=== PATIENT | male | born 1970 | race Caucasian/White ===

== ENCOUNTER 2020-10-28 09:11 | Day surgery (SDC) | payer OTHER, SELFPAY ==
[2020-10-28] VITALS (8 sets, daily range): BP systolic 111–131; BP diastolic 67–90; PULSE 58–77; RESP 16–18; TEMP 36.2–36.3; O2SAT 96–118; BMI 28.0
--- NOTE | ~2020-10-28 | FL_ITS ---
EXAMINATION: FLUOROSCOPY-GUIDED LUMBAR PUNCTURE CLINICAL INFORMATION: Pseudotumor cerebri. COMPARISON: None. TECHNIQUE: Following explaining fluoroscopy-guided lumbar puncture procedure, benefits and risks, a written consent was obtained. Patient was placed prone on the fluoroscopy table and low back area was cleaned and draped in usual sterile manner. 1% lidocaine was injected overlying the L4-L5 disc level in the left para midline region. A 22-gauge short spinal needle was inserted intrathecally under fluoroscopy guidance. After removing the site of swelling CSF fluid, patient was quickly placed in left lateral decubitus view and opening CSF pressure was obtained. CSF fluid was then collected and some drained in 4 test tubes. Closing pressure was then obtained. The stylet was reintroduced and needle withdrawn. Complete hemostasis was achieved at the puncture site. Sterile band-aid was applied postprocedure. Patient tolerated the procedure extremely well. FINDINGS: On a single image obtained of the lumbar spine, the L3, L4 and L5 vertebral heights were normal. The disc heights are preserved. No visible fracture or bony abnormality seen. The opening CSF pressure measured 35 cm of water. The closing CSF pressure measured 11 cm of water. Approximately 12 mL of clear CSF fluid was collected in 4 test tubes and sent to lab. FLUOROSCOPY TIME: 0.4 minutes. DOSE AREA PRODUCT: 3.694 uGy-m2 (microgray-meter squared). FL/FL guided lumbar puncture LP IMPRESSION: Successful fluoroscopy-guided lumbar puncture performed. Elevated CSF opening pressure 35 cm of water.
[2020-10-28 10:34] LABS: MANUAL DIFF FLAG NO
[2020-10-28 10:39] LABS: Basophils Absolute Auto 0.1 X10*3/uL (0.0-0.2); Eosinophils Absolute Auto 0.1 X10*3/uL (0.0-0.4); Eosinophils Percent Auto 2.6 % (0-4); Hematocrit 42.1 % (42-52); Hemoglobin 13.8 g/dl (14.0-18.0); Imm Gran Abs Auto 0.01 X10*3/uL (0.00-0.03); Imm Gran Pct Auto 0.2 % (0.0-0.4); Lymphocytes Absolute Auto 1.6 X10*3/uL (1.2-4.9); Lymphocytes Percent Auto 32.4 % (20-40); Mean Corpuscular HGB Conc 32.8 g/dl (31.0-36.0); Mean Corpuscular Hemoglobin 29.6 pg (27.0-33.0); Mean Corpuscular Volume 90.3 fL (80-98); Mean Platelet Volume 7.9 fL (9.4-12.4); Monocytes Absolute Auto 0.6 X10*3/uL (0.1-1.2); Monocytes Percent Auto 11.7 % (2-11); Neutrophils Absolute Auto 2.6 X10*3/uL (2.0-8.3); Neutrophils Percent Auto 52.1 % (45-73); Platelet Count 273 X10*3/uL (160-400); Red Blood Count 4.66 X10*6/uL (4.60-5.80); Red Cell Distribution Width 14.6 % (11.0-16.0); White Blood Count 4.9 X10*3/uL (4.8-10.8)
[2020-10-28 10:54] LABS: Partial Thromboplastin Time 33.6 SEC (24.1-38.0)
[2020-10-28 12:58] LABS: CSF Appearance Clear, Colorless
[2020-10-28 12:59] LABS: CSF Tube # 1
[2020-10-28 13:11] LABS: Glucose CSF 65 mg/dL; Total Protein CSF 34.5 mg/dL (15-45)
[2020-10-28 15:13] LABS: Appearance CSF CLEAR; CSF Tube # 4; Color CSF COLORLESS; Red Blood Cell CSF 0 MM*3; White Blood Cell CSF 7 MM*3
[2020-10-28 15:14] LABS: Lymphocytes CSF 85 %
[2020-10-28 15:15] LABS: CSF Monos 15 %
== END 2020-10-28 15:00 | disposition home or self-care (01) ==
PROVIDERS: Psychiatry & Neurology Neurology; Radiology Diagnostic Radiology; PCP Family Medicine; Visit Provider Radiology Diagnostic Radiology
PROC: 009U3ZZ Drainage of Spinal Canal, Percutaneous Approach (ICD-10-PCS; CPT 62270; principal; 2020-10-28 13:00)
DX: G93.2 Benign intracranial hypertension (principal); H46.9 Unspecified optic neuritis; Z79.51 Long term (current) use of inhaled steroids
CPT/HCPCS: 36415; 62328; 82945; 84157; 85025; 85610; 85730; 87015; 87070; 87205; 89051

== ENCOUNTER 2021-07-20 10:22 | Outpatient (REF) | payer OTHER, SELFPAY ==
[2021-07-20 10:37] LABS: MANUAL DIFF FLAG NO
[2021-07-20 10:55] LABS: Basophils Absolute Auto 0.1 X10*3/uL (0.0-0.2); Basophils Percent Auto 1.4 % (0-2); Eosinophils Absolute Auto 0.3 X10*3/uL (0.0-0.4); Eosinophils Percent Auto 5.1 % (0-4); Hematocrit 46.1 % (42.0-52.0); Hemoglobin 14.5 g/dl (14.0-18.0); Imm Gran Abs Auto 0.01 X10*3/uL (0.00-0.03); Imm Gran Pct Auto 0.2 % (0.0-0.4); Lymphocytes Absolute Auto 1.7 X10*3/uL (1.2-4.9); Lymphocytes Percent Auto 35.2 % (20-40); Mean Corpuscular HGB Conc 31.5 g/dl (31.0-36.0); Mean Corpuscular Hemoglobin 28.8 pg (27.0-33.0); Mean Corpuscular Volume 91.7 fL (80.0-98.0); Mean Platelet Volume 7.9 fL (9.4-12.4); Monocytes Absolute Auto 0.5 X10*3/uL (0.1-1.2); Monocytes Percent Auto 9.9 % (2-11); Neutrophils Absolute Auto 2.4 x10*3/uL (2.0-8.3); Neutrophils Percent Auto 48.2 % (45-73); Platelet Count 268 X10*3/uL (160-400); Red Blood Count 5.03 X10*6/uL (4.60-5.80); Red Cell Distribution Width 14.6 % (11.0-16.0)
[2021-07-20 11:17] LABS: Blood Urea Nitrogen 22 mg/dL (9-16); Estimated Glomerular Filt Rate > 60
== END 2021-07-20 10:23 | disposition home or self-care (01) ==
LOC: HO.LAB 10:22
PROVIDERS: PCP Family Medicine; Visit Provider Psychiatry & Neurology Neurology
DX: G93.2 Benign intracranial hypertension (principal)
CPT/HCPCS: 36415; 82565; 84520; 85025

== ENCOUNTER 2021-07-22 09:34 | Day surgery (SDC) | payer OTHER, SELFPAY ==
--- NOTE | ~2021-07-22 | FL_ITS ---
EXAMINATION: XR LUMBAR PUNCTURE CLINICAL INFORMATION: Pseudotumor cerebri COMPARISON: Previous exams most recent October 2020 TECHNIQUE/FINDINGS: Procedure and risks and benefits including bleeding, infection and headache were discussed with the patient and informed consent was obtained. Patient was positioned in the prone position. The lower back was prepped and draped in the usual sterile fashion. Using fluoroscopic guidance and a 22-gauge spinal needle, left-sided interlaminar access at the L4-L5 level was obtained. Opening pressure was 26 cm of water. 11 mL of clear CSF fluid was removed. Closing pressure was 14 cm of water. Diagnostic specimen was sent. FLUOROSCOPY TIME: 0.1 min DOSE AREA PRODUCT: 1.9 huang per centimeter squared. 1 saved fluoroscopic image.) FL/FL guided lumbar puncture LP IMPRESSION: Fluoroscopy-guided lumbar puncture.
[2021-07-22 10:27] LABS: MANUAL DIFF FLAG NO
[2021-07-22 10:30] LABS: Basophils Absolute Auto 0.1 X10*3/uL (0.0-0.2); Basophils Percent Auto 1.2 % (0-2); Eosinophils Absolute Auto 0.3 X10*3/uL (0.0-0.4); Eosinophils Percent Auto 4.8 % (0-4); Hematocrit 46.4 % (42.0-52.0); Hemoglobin 14.5 g/dl (14.0-18.0); Imm Gran Abs Auto 0.01 X10*3/uL (0.00-0.03); Imm Gran Pct Auto 0.2 % (0.0-0.4); Lymphocytes Percent Auto 34.2 % (20-40); Mean Corpuscular HGB Conc 31.3 g/dl (31.0-36.0); Mean Corpuscular Hemoglobin 28.5 pg (27.0-33.0); Mean Corpuscular Volume 91.2 fL (80.0-98.0); Mean Platelet Volume 7.7 fL (9.4-12.4); Monocytes Absolute Auto 0.5 X10*3/uL (0.1-1.2); Monocytes Percent Auto 8.1 % (2-11); Neutrophils Percent Auto 51.5 % (45-73); Platelet Count 262 X10*3/uL (160-400); Red Blood Count 5.09 X10*6/uL (4.60-5.80); Red Cell Distribution Width 14.4 % (11.0-16.0); White Blood Count 5.8 X10*3/uL (4.8-10.8)
[2021-07-22 10:38] LABS: Prothrombin Time 11.6 SEC (9.9-13.0)
[2021-07-22 10:41] LABS: Partial Thromboplastin Time 34.8 SEC (24.1-38.0)
[2021-07-22 10:45] VITALS: BMI 28.0
[2021-07-22 12:10] VITALS: BP 106/89; PULSE 77; RESP 16; TEMP 36.8; O2SAT 97
[2021-07-22 12:25] VITALS: PULSE 69; RESP 16; O2SAT 97
--- NOTE | 2021-07-22 12:39 | HO.RADPN ---
RADIOLOGY Narrative Narrative: LP performed at L4/5 using 22 g spnal needle. 11 ml clear csf removed. Opening pressure 26 cm h20. closing pressure 14 cm h20.
[2021-07-22 12:48] LABS: CSF Appearance Clear, Colorless; CSF Tube # 2
[2021-07-22 12:58] LABS: Glucose CSF 60 mg/dL; Total Protein CSF 43.3 mg/dL (15-45)
[2021-07-22 13:25] VITALS: BP 113/74; PULSE 70; RESP 16; O2SAT 98
[2021-07-22 13:51] LABS: Appearance CSF CLEAR; CSF Monos 0 %; CSF Other Cells % 0 %; CSF Tube # 4; Color CSF COLORLESS; Lymphocytes CSF 100 %; Neutrophils CSF 0 %; Red Blood Cell CSF 0 MM*3; White Blood Cell CSF 1 MM*3
[2021-07-22 14:03] VITALS: BP 121/68; PULSE 78; RESP 17; TEMP 36.6; O2SAT 98
== END 2021-07-22 14:10 | disposition home or self-care (01) ==
PROVIDERS: Psychiatry & Neurology Neurology; Radiology Diagnostic Radiology; PCP Family Medicine; Visit Provider Radiology Diagnostic Radiology
PROC: 009U3ZZ Drainage of Spinal Canal, Percutaneous Approach (ICD-10-PCS; CPT 62270; principal; 2021-07-22 11:00)
DX: G93.2 Benign intracranial hypertension (principal); H46.9 Unspecified optic neuritis
CPT/HCPCS: 36415; 62328; 82945; 84157; 85025; 85610; 85730; 87015; 87070; 87205; 89051

== ENCOUNTER 2021-11-05 14:11 | Outpatient (REF) | payer OTHER, SELFPAY ==
[2021-11-05 16:08] LABS: Alanine Aminotransferase 18 U/L (0-40); Albumin Level 4.3 g/dL (3.5-5.0); Alkaline Phosphatase 92 U/L (39-117); Anion Gap 11 (12-20); Aspartate Amino Transferase 26 U/L (5-37); Bilirubin Total 0.6 mg/dL (0.0-1.0); Blood Urea Nitrogen 22 mg/dL (9-16); Calcium 9.5 mg/dL (8.4-10.2); Carbon Dioxide 23 mmol/L (22-29); Chloride 113 mmol/L (96-108); Estimated Glomerular Filt Rate > 60; Glucose Random 114 mg/dL (60-115); Potassium 4.1 mmol/L (3.3-5.1); Sodium 143 mmol/L (135-145); Total Protein 7.2 g/dL (6.5-8.0)
== END 2021-11-05 14:12 | disposition home or self-care (01) ==
LOC: HO.LAB 14:11
PROVIDERS: PCP Family Medicine; Referring Provider Family Medicine; Visit Provider Nurse Practitioner
DX: D12.6 Benign neoplasm of colon, unspecified (principal)
CPT/HCPCS: 36415; 80053; 99202

== ENCOUNTER 2022-11-01 08:48 | Day surgery (SDC) | payer OTHER, SELFPAY ==
--- NOTE | 2022-10-29 12:43 | HO.ANESPROP2 ---
Documented by User: Kerry Sarabia NP 10/29/22 12:43 HPI - Anesthesia Eval Consult details Narrative: 52yo M for Colonoscopy [facility] Active Problems Active Problems: All Active Problems (Updated 10/26/22 @ 15:03 by Brandee Payne, RN) Developmental delay, mild (Acute) Pseudotumor cerebri (Acute) High cholesterol (Acute) Papilledema (Acute) Tubular adenoma of colon (Acute) Eczematous dermatitis (Acute) Past Medical History Medical History (Updated 10/26/22 @ 15:03 by Brandee Payne RN) Allergic rhinitis Developmental delay, mild Elevated cholesterol Surgical History Surgical History History of colonoscopy Social History Social History Advance Directives: No Advance Directives Information Provided: Yes Meds Allergies Allergy/AdvReac Type Severity Reaction Status Date / Time No Known Allergies Allergy Verified 10/26/22 15:01 Home Medications Medication Instructions Recorded Confirmed Last Taken Type acetazolamide 500 mg 0 mg PO 11/05/21 Unknown History capsule,extended release betamethasone dipropionate 0.05 % topical DAILY 11/05/21 Unknown History topical ointment diphenhydramine HCl 25 mg capsule 25 - 50 mg PO Q8H PRN itch 11/05/21 10/26/22 Unknown History (Banophen) fluticasone propionate 50 1 - 2 spray intranasal DAILY PRN 11/05/21 10/26/22 Unknown History mcg/actuation nasal Nasal Congestion spray,suspension loratadine 10 mg tablet 10 mg PO BID 11/05/21 10/26/22 Unknown History Exam Exam Date and Time: October 29, 2022 1243 Assessment and Plan Assessment Anesthesia Assessment: Chart Reviewed Documented by User: Gabi Nassar MD 11/01/22 09:52 HPI - Anesthesia Eval Consult details Narrative: 52yo M for Colonoscopy screenng [facility] Past Medical History Medical History (Updated 10/26/22 @ 15:03 by Brandee Payne RN) Allergic rhinitis Developmental delay, mild Elevated cholesterol Family History Family history of problems with anesthesia: No Surgical History Surgical History History of colonoscopy History of Problems with Anesthesia: No Social History Social History Advance Directives: No Advance Directives Information Provided: Yes Meds Allergies Allergy/AdvReac Type Severity Reaction Status Date / Time No Known Allergies Allergy Verified 10/26/22 15:01 Home Medications Medication Instructions Recorded Confirmed Last Taken Type acetazolamide 500 mg 0 mg PO 11/05/21 Unknown History capsule,extended release betamethasone dipropionate 0.05 % topical DAILY 11/05/21 Unknown History topical ointment diphenhydramine HCl 25 mg capsule 25 - 50 mg PO Q8H PRN itch 11/05/21 10/26/22 Unknown History (Banophen) fluticasone propionate 50 1 - 2 spray intranasal DAILY PRN 11/05/21 10/26/22 Unknown History mcg/actuation nasal Nasal Congestion spray,suspension loratadine 10 mg tablet 10 mg PO BID 11/05/21 10/26/22 Unknown History Exam Airway Mallampati Class: II TM Dist: >3cm Neck ROM: Full Heart: rr Lungs: cta Assessment and Plan Final Anesthetic Review Family History of Problems with Anesthesia: No History of Problems with Anesthesia: No Anesthetic Plan Anesthetic Plan: MAC: Disposition: Standard PACU
--- NOTE | 2022-11-01 09:35 | MHC.SHP ---
Pre-Procedural Eval Section A Date of Service: 11/01/22 The patient is an INPATIENT: No The History & Physical has been completed within 30 days and I have reviewed it.: No Section B Chief Complaint: Benign neoplasm of colon, Details of Present Illness: screening, history of colon polyps Relevant Family History (Specify if Yes): No Relevant Social History: None Present Medications: see Short Stay Collaborative assessment Medical History: Significant History ( developmental delay, pseudotumor cerebri, high cholesterol) History of Previous Operations: Relevant previous surgery/procedure and date(s) ( history of colonoscopy) Allergies: Allergies Allergy/AdvReac Type Severity Reaction Status Date / Time No Known Allergies Allergy Verified 10/26/22 15:01 Review of Systems Sugical H&P ROS: Negative: Constitution, Cardiovascular, Respiratory and Gastrointestinal Exam Surgical H&P Exam: Normal: Heart, Normal: Lungs, Normal: Extremities and Normal: Abdomen Plan Diagnosis/Plan: Unchanged I have reviewed the history and physical and performed a pertinent physical examination on my patient. No changes have occurred unless specified. Time Spent With Patient Time: Total time managing care of this patient today ____ minutes.
--- NOTE | 2022-11-01 09:59 | P.CONAN_ITS ---
FORMERLY [facility], [facility] Active Problems Active Problems: All Active Problems (Updated 10/26/22 @ 15:03 by Brandee Payne RN) Developmental delay, mild (Acute) Pseudotumor cerebri (Acute) High cholesterol (Acute) Papilledema (Acute) Tubular adenoma of colon (Acute) Eczematous dermatitis (Acute) Past Medical History Medical History Allergic rhinitis Developmental delay, mild Elevated cholesterol Family History Family history of problems with anesthesia: No Surgical History Surgical History History of colonoscopy History of Problems with Anesthesia: No Social History Social History Patient Tobacco Use Status: Never used Tobacco Use of substances other than those prescribed or required for medical reasons: No Are you DNR?: No Advance Directives: No Advance Directives Information Provided: Yes Recently lost weight without trying: No Nutrition Risks: No Nutritional Risk Meds Allergies Allergy/AdvReac Type Severity Reaction Status Date / Time No Known Allergies Allergy Verified 10/26/22 15:01 Active Medications: Current Medications Lactated Ringer's (Lr) 1,000 mls @ 100 mls/hr IVCONT .Q10H [facility] Home Medications Medication Instructions Recorded Confirmed Last Taken Type acetazolamide 500 mg 0 mg PO 11/05/21 Unknown History capsule,extended release betamethasone dipropionate 0.05 % topical DAILY 11/05/21 Unknown History topical ointment diphenhydramine HCl 25 mg capsule 25 - 50 mg PO Q8H PRN itch 11/05/21 10/26/22 Unknown History (Banophen) fluticasone propionate 50 1 - 2 spray intranasal DAILY PRN 11/05/21 10/26/22 Unknown History mcg/actuation nasal Nasal Congestion spray,suspension loratadine 10 mg tablet 10 mg PO BID 11/05/21 10/26/22 Unknown History Exam Exam Date and Time: November 01, 2022 0959 Airway Mallampati Class: III TM Dist: >3cm Neck ROM: Full Loose/Missing/Broken Teeth: No Heart: RRR Lungs: CTA Assessment and Plan Assessment Anesthesia Assessment: Anesthesia Plan Discussed and Chart Reviewed Final Anesthetic Review Family History of Problems with Anesthesia: No History of Problems with Anesthesia: No NPO: Yes ASA Class: II Final Preanesthetic Review: Meds/Allgs Chart Reviewed, Consent Obtained/Reviewed and Anes Risks/Benef Reviewed Patient Risk: Low Procedure Risk: Low Anesthetic Plan Anesthetic Plan: MAC: Disposition: Standard PACU
[2022-11-01 10:02] VITALS: BP 133/72; PULSE 80; RESP 16; TEMP 36.5; O2SAT 97
[2022-11-01 10:05] VITALS: BMI 29.7
[2022-11-01] MEDS: Lactated Ringers 1,000 ML 100 ML IVCONT (10:11)
--- NOTE | 2022-11-01 11:08 | P.BOP_ITS ---
Brief Operative Note Date of Service: 11/01/22 Pre-op diagnosis: Colon cancer screening, history of colon polyps Post-op diagnosis: other ( colon polyps, diverticulosis hemorrhoids) Procedure: COLONOSCOPY TILL CECUM WITH BIOPSIES, SNARE POLYPECTOMY AND SUBMUCOSAL INJECTION Surgeon: Johnson Dorsey MD Anesthesia: MAC Was an Education Manager used for this Procedure?: Yes Education Manager: Ritu Hutchinson Estimated blood loss (mL): 0 Pathology: other (A. ascending colon polyp B. transverse colon polyp @ 60 cms) Condition: stable Disposition: PACU
--- NOTE | 2022-11-01 11:09 | W.PM.OPN ---
Operative Note Operative Note Date of Service: 11/01/22 Narrative: COLONOSCOPY TILL CECUM WITH BIOPSIES, SNARE POLYPECTOMY AND SUBMUCOSAL INJECTION Indication:? Colon cancer screening Endoscopist:? Johnson Dorsey MD Anesthesia Provider:?Dr Garay Anesthesia type:?MAC Consent: Indications for the procedure and potential complications of bleeding, perforation, reaction to medications and missed diagnosis were discussed with the patient and informed consent was obtained. Instrument: Olympus PCF H 190 L variable stiffness pediatric colonoscope Monitoring: Vital signs and clinical assessment, intermittent blood pressure monitoring, continuous EKG monitoring, Pulse oximetry and Carbon Dioxide monitoring were done throughout the procedure. Please see anesthesia flowsheet. Colon withdrawl time was 23 minutes. Procedure: The patient was placed in the left lateral decubitis position and pre-procedure medications were administered. After a digital rectal examination of the ano-rectum, the video colonoscope was inserted into the rectum and advanced through the colon to the cecum. The colonoscope was slowly withdrawn in a retrograde panoramic fashion and the colon mucosa was carefully examined including a retroflexed view of the rectum. Findings and interventions are described below. Procedure Difficulty: LLQ pressure applied to intubate the ascending colon Findings: Terminal Ileum: Not evaluated Cecum: Normal Ascending Colon: A 3-4 mm diminutive appearing polyp in the distal ascending colon - removed with a cold biopsy Transverse Colon: A 15 to 18 mm flat polyp - raised with 8 cc of Eleview and removed with a hot snare. polypectomy site was marked with Diana ink Descending Colon: Normal Sigmoid Colon: Moderate diverticulosis Rectum: Normal Ano-rectum: Moderate internal hemorrhoids Colon preparation: Good after copious irrigation Impression and Post Procedure Diagnosis: Colonoscopy Findings: One small and one medium sized polyps removed Moderate diverticulosis seen in the sigmoid colon Moderate hemorrhoids on retroflexed exam. Plan: Await pathology results Patient has an appointment on 11/16/2022 in the GI [facility] with Yolanda Bacon NP. Repeat Colonoscopy interval based on path results - in 3-5 years if polyps are adenomatous and 5 years if polyps are hyperplastic (due to hx of adenomatous colon polyps). Above findings were reviewed with the patient and colon polyps and diverticulosis handouts were given in the discharge area
[2022-11-01 11:10] VITALS: BP 98/54; PULSE 76; RESP 20; TEMP 36.6; O2SAT 97
[2022-11-01 11:25] VITALS: BP 102/63; PULSE 64; RESP 20; O2SAT 95
[2022-11-01 11:40] VITALS: BP 117/75; PULSE 68; RESP 16; TEMP 36.4; O2SAT 96
== END 2022-11-01 12:38 | disposition home or self-care (01) ==
PROVIDERS: PCP Family Medicine; Visit Provider Internal Medicine Gastroenterology
PROC: 0DJD8ZZ Inspection of Lower Intestinal Tract, Via Natural or Artificial Opening Endoscopic (ICD-10-PCS; CPT 45378; principal; 2022-11-01 10:10)
DX: Z12.11 Encounter for screening for malignant neoplasm of colon (principal); Z86.010 Personal history of colon polyps; D12.3 Benign neoplasm of transverse colon; K63.5 Polyp of colon; K57.30 Diverticulosis of large intestine without perforation or abscess without bleeding; K64.8 Other hemorrhoids; G93.2 Benign intracranial hypertension; J30.9 Allergic rhinitis, unspecified; R62.59 Other lack of expected normal physiological development in childhood; E78.00 Pure hypercholesterolemia, unspecified; H47.10 Unspecified papilledema; Z79.899 Other long term (current) drug therapy
CPT/HCPCS: 45385; 45380; 45381; 88305

== ENCOUNTER → 2022-11-26 14:22 | Outpatient (BNVA) | payer OTHER, SELFPAY | PROVIDERS: PCP Family Medicine; Visit Provider Nurse Practitioner | DX: D12.6 Benign neoplasm of colon, unspecified (principal); E78.00 Pure hypercholesterolemia, unspecified | CPT/HCPCS: 99212 ==

== ENCOUNTER 2022-12-23 08:29 | Outpatient (REF) | payer OTHER, SELFPAY ==
[2022-12-23 08:57] LABS: MANUAL DIFF FLAG NO
[2022-12-23 09:07] LABS: Basophils Absolute Auto 0.1 X10*3/uL (0.0-0.2); Basophils Percent Auto 1.4 % (0-2); Eosinophils Absolute Auto 0.3 X10*3/uL (0.0-0.4); Eosinophils Percent Auto 5.3 % (0-4); Hematocrit 40.7 % (42.0-52.0); Hemoglobin 12.4 g/dl (14.0-18.0); Imm Gran Abs Auto 0.02 X10*3/uL (0.00-0.03); Imm Gran Pct Auto 0.4 % (0.0-0.4); Lymphocytes Absolute Auto 1.7 X10*3/uL (1.2-4.9); Lymphocytes Percent Auto 34.8 % (20-40); Mean Corpuscular HGB Conc 30.5 g/dl (31.0-36.0); Mean Corpuscular Hemoglobin 27.8 pg (27.0-33.0); Mean Corpuscular Volume 91.3 fL (80.0-98.0); Monocytes Absolute Auto 0.6 X10*3/uL (0.1-1.2); Monocytes Percent Auto 11.2 % (2-11); Neutrophils Absolute Auto 2.3 x10*3/uL (2.0-8.3); Neutrophils Percent Auto 46.9 % (45-73); Platelet Count 305 X10*3/uL (160-400); Red Blood Count 4.46 X10*6/uL (4.60-5.80); Red Cell Distribution Width 14.5 % (11.0-16.0); White Blood Count 4.9 X10*3/uL (4.8-10.8)
[2022-12-23 09:53] LABS: Alanine Aminotransferase 17 U/L (0-40); Alkaline Phosphatase 98 U/L (39-117); Anion Gap 10 (12-20); Aspartate Amino Transferase 31 U/L (5-37); Bilirubin Direct 0.2 mg/dL (0.0-0.5); Bilirubin Total 0.8 mg/dL (0.0-1.0); Blood Urea Nitrogen 19 mg/dL (9-16); Carbon Dioxide 23 mmol/L (22-29); Chloride 115 mmol/L (96-108); Estimated Glomerular Filt Rate > 60; Glucose Random 100 mg/dL (60-115); Potassium 4.5 mmol/L (3.3-5.1); Sodium 143 mmol/L (135-145); Total Protein 6.6 g/dL (6.5-8.0)
[2022-12-23 10:09] LABS: Prostate Specific Antigen 0.68 ng/mL (<0.05-4.0)
== END 2022-12-23 08:30 | disposition home or self-care (01) ==
LOC: HO.LAB 08:29
PROVIDERS: PCP Family Medicine; Visit Provider Family Medicine
DX: Z12.5 Encounter for screening for malignant neoplasm of prostate (principal); G93.2 Benign intracranial hypertension; K63.5 Polyp of colon; E78.5 Hyperlipidemia, unspecified; Z80.42 Family history of malignant neoplasm of prostate
CPT/HCPCS: 36415; 80048; 80076; 84153; 85025

== ENCOUNTER 2023-05-19 09:01 | Day surgery (SDC) | payer OTHER, SELFPAY ==
[2023-05-19 09:35] VITALS: BMI 29.4
[2023-05-19 12:30] VITALS: BP 114/80; PULSE 60; RESP 16; TEMP 36.1; O2SAT 99
[2023-05-19 12:50] VITALS: BP 126/82; PULSE 56; RESP 18; TEMP 36.5; O2SAT 99
[2023-05-19 13:10] VITALS: BP 128/85; PULSE 71; RESP 20; TEMP 36.6; O2SAT 99
[2023-05-19 13:30] VITALS: BP 127/93; PULSE 61; RESP 18; TEMP 36.6; O2SAT 97
[2023-05-19 13:50] VITALS: BP 127/82; PULSE 61; RESP 18; TEMP 36.6; O2SAT 98
== END 2023-05-19 14:00 | disposition home or self-care (01) ==
PROVIDERS: Radiology Vascular & Interventional Radiology; PCP Family Medicine; Visit Provider Psychiatry & Neurology Neurology
PROC: 009U3ZZ Drainage of Spinal Canal, Percutaneous Approach (ICD-10-PCS; CPT 62270; principal; 2023-05-19 11:00)
DX: G93.2 Benign intracranial hypertension (principal); H46.9 Unspecified optic neuritis; J30.9 Allergic rhinitis, unspecified; Z79.899 Other long term (current) drug therapy
CPT/HCPCS: 36415; 62328; 84157; 85025; 85610; 85730; 87015; 87070; 87205; 89051

== ENCOUNTER → 2023-05-19 11:30 | Outpatient (BNV) | payer OTHER, SELFPAY | PROVIDERS: PCP Family Medicine; Visit Provider Radiology Vascular & Interventional Radiology | DX: G93.2 Benign intracranial hypertension (principal) | CPT/HCPCS: 62328 ==

== ENCOUNTER 2023-12-14 08:11 | Outpatient (REF) | payer OTHER, SELFPAY ==
[2023-12-14 11:30] LABS: MANUAL DIFF FLAG NO
[2023-12-14 11:39] LABS: Basophils Percent Auto 1.7 % (0-2); Eosinophils Percent Auto 4.5 % (0-4); Hematocrit 41.8 % (42.0-52.0); Hemoglobin 12.6 g/dl (14.0-18.0); Imm Gran Abs Auto 0.01 X10*3/uL (0.00-0.03); Imm Gran Pct Auto 0.2 % (0.0-0.4); Lymphocytes Percent Auto 43.3 % (20-40); Mean Corpuscular HGB Conc 30.1 g/dl (31.0-36.0); Mean Corpuscular Volume 89.5 fL (80.0-98.0); Mean Platelet Volume 8.3 fL (9.4-12.4); Monocytes Absolute Auto 0.5 X10*3/uL (0.1-1.2); Monocytes Percent Auto 10.8 % (2-11); Neutrophils Absolute Auto 1.8 x10*3/uL (2.0-8.3); Neutrophils Percent Auto 39.5 % (45-73); Platelet Count 341 X10*3/uL (160-400); Red Blood Count 4.67 X10*6/uL (4.60-5.80); White Blood Count 4.6 X10*3/uL (4.8-10.8)
[2023-12-14 12:13] LABS: Alanine Aminotransferase 15 U/L (0-40); Alkaline Phosphatase 93 U/L (39-117); Anion Gap 12 (12-20); Aspartate Amino Transferase 31 U/L (5-37); Bilirubin Direct 0.2 mg/dL (0.0-0.5); Bilirubin Total 0.6 mg/dL (0.0-1.0); Blood Urea Nitrogen 17 mg/dL (9-16); Calcium 9.3 mg/dL (8.4-10.2); Carbon Dioxide 21 mmol/L (22-29); Chloride 114 mmol/L (96-108); Cholesterol 177 mg/dL (<200); Estimated Glomerular Filt Rate > 60; Glucose Random 100 mg/dL (60-115); HDL Cholesterol 43 mg/dL (>40); LDL Cholesterol Calculated 118 mg/dL (<100); Sodium 143 mmol/L (135-145); Total Protein 7.4 g/dL (6.5-8.0); Triglycerides 81 mg/dL (<150)
[2023-12-14 12:29] LABS: Prostate Specific Antigen 0.72 ng/mL (<0.05-4.0)
== END 2023-12-14 08:12 | disposition home or self-care (01) ==
LOC: HO.HHCL 08:11
PROVIDERS: Visit Provider Family Medicine
DX: G93.2 Benign intracranial hypertension (principal); D64.9 Anemia, unspecified; E78.5 Hyperlipidemia, unspecified; Z80.42 Family history of malignant neoplasm of prostate; Z12.5 Encounter for screening for malignant neoplasm of prostate
CPT/HCPCS: 36415; 80048; 80061; 80076; 84153; 85025

== ENCOUNTER 2025-06-22 08:22 | Outpatient (REF) | payer OTHER, SELFPAY ==
--- OUTSIDE RECORDS SUMMARY | 2025-06-17 15:00 | XMS_ITS | Encounter Summary ---
Author Organization [employer] Address [address] [place] [address] Care Team Providers Care Manager Secondary Name Role Phone Tanisha Woodruff MD Primary Care Provider [phone] David Asif MD Unavailable [phone] Manolo Franco MD Unavailable [phone] Reason for Visit * Reason Comments Scaling And Root Planing ULJACY Encounter Details Date Type Department Care Team (Late st Contact Info) Description 06/17/2025 3:00 PM EST Office Visit [facility] [address] [place] [address] Ayesha Holcomb Subgingival dental calculus (Primary Dx); Supragingival dental calculus; Periodontal disease; Bleeding gums Social History Tobacco Use Types Packs/Day Years Used Date Smoking Tobacco: Never Smokeless Tobacco: Never Depression Answer Date Recorded Patient Health Questionnaire-9 Score 0 12/07/2023 Patient Health Questionnaire-9 Score 0 12/07/2023 Last PHQ-9: Questionnaire Data Not on file 0 12/07/2023 Housing Stability Answer Date Recorded What is your housing situation today? I have deniz miller 11/29/[address] you li ve. Do you have problems with any of the following? None of the above 11/29/2023 Food Insecurity Answer Date Recorded Within the past 12 months, y ou worried that your food would run out before you got money to buy more: Never True 11/29/2023 Within the past 12 months,th e food you bought just didn't last and you didn't have enough money to get more: Never True Transportation Answer Date Recorded In the past 12 months, has l ack of transportation kept you from medical appts, meetings, work or from getting things needed for daily living? No 11/29/2023 Utilities Answer Date Recorded In the past 12 months, has t he electric, gas, oil or water company threatened to shut off services in your home? No 11/29/2023 Depression Answer Date Recorded Patient Health Questionnaire-2 Score 0 12/07/2023 Sex and Gender Information Value Date Recorded Sex Assigned at Male 06/14/2022 10:15 AM EDT Legal Sex Male 10:15 AM EDT Gender Identity Male 06/14/2022 10:15 AM EDT Sexual Orientation Choose not to disclose 2021 10:15 AM EDT documented as of this encounter Last Filed Vital Signs Vital Sign Reading Time Taken Comments Blood Pressure 152/87 06/17/2025 3:09 PM EST Pulse - - Temperature - - Respiratory Rate - - Oxygen Saturation - - Inhaled Oxygen Concentration - - Weight - - Height - - Body Mass Index - - documented in this encounter Progress Notes * Ayesha Holcomb - 06/17/2025 3:00 PM EST Patient ID: Hans Weaver is a 55 y.o. male. Time Out: Timeout Date: 06/17/25, Timeout Time: 1509 (Dental SRP Adult) Location: [facility] Tooth: UL and LL Procedure: Scaling and Root Planing Verified the above with patient, assistant professor of chemistry, and provider. Confirmed via patient's chart, intraorally and by radiographs. Transmission Rebuilder: not applicable Medical Hx: Vitals: Blood pressure (!) 152/87. Medications, Med Hx reviewed with patient and updated in chart. Treatment Provided Dental procedures in this visit D4341 - PERIODONTAL SCALING AND ROOT PLANING - 4 OR MORE TEETH PER QUADRANT UL (Completed) Service provider: Ayesha Holcomb [place] provider: Kiah Kiran DDS D4341 - PERIODONTAL SCALING AND ROOT PLANING - 4 OR MORE TEETH PER QUADRANT LL (Completed) Service provider: Ayesha Holcomb [place] provider: Kiah Kiran DDS D1330 - ORAL HYGIENE INSTRUCTIONS (Completed) Service provider: Ayesha Holcomb [place] provider: Kiah Kiran DDS D9450 - CASE PRESENTATION, DETAILED AND EXTENSIVE TREATMENT PLANNING (Completed) Service provider: Ayesha Holcomb Billing provider: Kiah Kiran DDS Topical: 20% Benzocaine Anesthesia: 2% Lidocaine (Xylocaine) w/ 1:100,000 epinephrine Number of Cartridges: 2 Injection Type: Inferior alveolar nerve block, Mental nerve block, Anterior superior alveolar nerveblock, Middle superior alveolar nerve block, and Posterior superior alveolar nerve block Confirmed profound anesthesia. Oral Cancer Screening: No lesions Head/Neck Exam: No Lesions Instruments Used: Ultrasonic Scalers, Hand Scalers, and Floss Fluoride: N/A Calculus: Heavy, Generalized, and Subgingival Plaque: Moderate and Generalized Stain: Heavy and Generalized Bleeding: Heavy and Generalized Gingiva: Recession- generalized, Edematous, and Erythematous OH: Poor Oral hygiene instructions provided to patient including brushing technique and flossing. Recommendations: [place] two times daily, modified nathan technique, Floss daily, Electric toothbrush, Soft bristle toothbrush, [place] Tongue, Anti-sensitivity toothpaste Recall Frequency: 3 mo NV: SRP UR, LR Hygienist: Ayesha Holcomb RDH * Kiah Kiran DDS - 06/17/2025 3:00 PM EST I have reviewed the documentation and dental procedures made by the rendering provider, Ayesha Holcomb RDH, and approve their chart entries for this visit. Kiah Kiran DDS documented in this encounter Plan of Treatment Upcoming Encounters Date Type Department Care Team (Late st Contact Info) Description 07/02/2025 3:00 PM EST Office Visit [facility] [address] [place] [address] Ayesha Holcomb 08/01/2025 2:30 PM EST Office Visit [facility] [address] [place] [address] Kevin Katz DDS [address] [place] [address] documented as of this encounter Procedures Procedure Name Priority Date/Time Associated Diagnosis Comments LL PERIODONTAL SCALING AND ROOT PLANING - 4 OR MORE TEETH PER QUADRANT Routine 06/17/2025 3:00 PM EST Subgingival dental calculus Supragingival dental calculus Periodontal disease Bleeding gums UL PERIODONTAL SCALING AND ROOT PLANING - 4 OR MORE TEETH PER QUADRANT Routine 06/17/2025 3:00 PM EST Subgingival dental calculus Supragingival dental calculus Periodontal disease Bleeding gums ORAL HYGIENE INSTRUCTIONS Routine 06/17/2025 3:00 PM EST Subgingival dental calculus Supragingival dental calculus Periodontal disease Bleeding gums CASE PRESENTATION, DETAILED AND EXTENSIVE TREATMENT PLANNING Routine 06/17/2025 3:00 PM EST documented in this encounter Visit Diagnoses Diagnosis Subgingival dental calculus- Primary Accretions on teeth Supragingival dental calculus Accretions on teeth Periodontal disease Unspecified gingival and periodontal disease Bleeding gums Other specified periodontal diseases documented in this encounter Additional Health Concerns Assessment Noted Time PHQ-9 Depression Total Score: 0 12/07/19 24 1:52 PM EDT documented as of this encounter Care Teams Manager Secondary Relationship Specialty Start Date End Date Tanisha Woodruff MD [address] [place] [address] PCP - General Family Medicine 08/15/18 David Asif MD [address] [place] [address] [address] [place] [address] Ophthalmology 09/06/24 Manolo Franco MD [address] [place] [address] [place] [id number] Neurology 09/06/24 documented as of this encounter
--- OUTSIDE RECORDS SUMMARY | 2025-06-21 10:00 | XMS_ITS | Encounter Summary ---
Author Organization [employer] Address [address] [facility] [address] [place] [address] Care Team Providers Care Manager Agriculture Name Role Phone Tanisha Woodruff MD Primary Care Provider [phone] David Asif MD Unavailable [phone] Manolo Franco MD Unavailable [phone] Reason for Visit * Reason Comments Annual Exam Encounter Details Date Type Department Care Team (Latest Contact Info) Description 06/21/2025 10:00 AM EST Office Visit [facility] MEDICINE [address] [place] [address] Tanisha Woodruff MD [address] [place], [place] [id number] Benign intracranial hypertension (Primary Dx); Dyslipidemia; Cognitive developmental delay; Family history of prostate cancer; Dietary counseling; Exercise counseling; Overweight; Other specified health status; Encounter for immunization; Screening for diabetes mellitus; Anemia, unspecified type Social History Tobacco Use Types Packs/Day Years Used Date Smoking Tobacco: Never Smokeless Tobacco: Never Depression Answer Date Recorded Patient Health Questionnaire-9 Score 0 06/21/2025 Patient Health Questionnaire-9 Score 0 06/21/2025 Last PHQ-9: Questionnaire Data Not on file 1 08/21/2024 Housing Stability Answer Date Recorded What is your housing situation today? I am not s ure 06/21/[address] you li ve. Do you have problems with any of the following? None of the above 06/21/2025 Food Insecurity Answer Date Recorded Within the past 12 months, y ou worried that your food would run out before you got money to buy more: Never True 06/21/2025 Within the past 12 months,th e food you bought just didn't last and you didn't have enough money to get more: Never True 02/2025 Transportation Answer Date Recorded In the past 12 months, has l ack of transportation kept you from medical appts, meetings, work or from getting things needed for daily living? No 06/21/2025 Utilities Answer Date Recorded In the past 12 months, has t he electric, gas, oil or water company threatened to shut off services in your home? No 06/21/2025 Depression Answer Date Recorded Patient Health Questionnaire-2 Score 0 06/21/2025 Internet Access Answer Date Recorded Internet Access Q1 No 06/21/2025 Internet Access Q2 I do not want or need it 02/2025 Sex and Gender Information Value Date Recorded Sex Assigned at Male 06/14/2022 10:15 AM EDT Legal Sex Male 10:15 AM EDT Gender Identity Male 06/14/2022 10:15 AM EDT Sexual Orientation Choose not to disclose 2021 10:15 AM EDT documented as of this encounter Last Filed Vital Signs Vital Sign Reading Time Taken Comments Blood Pressure 130/86 06/21/2025 9:40 AM EST Pulse 122 06/21/2025 9:40 AM EST Temperature 37.2 C (98.9 F) 06/21/2025 9:40 AM EST Respiratory Rate 20 06/21/2025 9:40 AM EST Oxygen Saturation 98% 06/21/2025 9:40 AM EST Inhaled Oxygen Concentration - - Weight 87.7 kg (193 lb 6.4 oz) 06/21/2025 9:40 A M EST Height 175.9 cm (5' 9.25 ) 06/21/2025 9:40 AM ES T Body Mass Index 28.35 06/21/2025 9:40 AM EST documented in this encounter Functional Status * Over the past 2 weeks, how often have you been bothered by any of the following problems? Question Answer Date of Assessment Author Patient Health Questionnaire-2 Score 0 02/2025 9:41 AM EST Irene Butler MA * Little interest or pleasure in doing things Answer Date of Assessment Author Not at all 06/21/2025 9:41 AM EST Raymond Butler MA * Feeling down, depressed, or hopeless Answer Date of Assessment Author Not at all 06/21/2025 9:41 AM BRYON Butler, Raymond hernandez MA * Trouble falling or staying asleep, or sleeping too much Answer Date of Assessment Author Not at all 06/21/2025 9:41 AM BRYON Butler, As JOEL hernandez * Feeling tired or having little energy Answer Date of Assessment Author Not at all 06/21/2025 9:41 AM BRYON Butler, Raymond hernandez MA * Poor appetite or overeating Answer Date of Assessment Author Not at all 06/21/2025 9:41 AM BRYON Butler, As JOEL hernandez * Feeling bad about yourself - or that you are a failure or have let yourself or your family down Answer Date of Assessment Author Not at all 06/21/2025 9:41 AM BRYON Butler, Raymond hernandez MA * Trouble concentrating on things, such as reading the newspaper or watching television Answer Date of Assessment Author Not at all 06/21/2025 9:41 AM BRYON Butler, Raymond hernandez MA * Moving or speaking so slowly that other people could have noticed? Or the opposite - being so fidgety or restless that you have been moving around a lot more than usual. Answer Date of Assessment Author Not at all 06/21/2025 9:41 AM Raymond Pham MA * Thoughts that you would be better off or hurting yourself in some way Answer Date of Assessment Author Not at all 06/21/2025 9:41 AM Raymond Pham MA * Patient Health Questionnaire-9 Score Answer Date of Assessment Author 0 06/21/2025 9:41 AM BRYON Butler, Raymond hernandez MA * Over the last 2 weeks, how often have you been bothered by any of the following problems? Question Answer Date of Assessment Author Feeling nervous, anxious, or on edge 0 02/2025 9:42 AM Irene Pham MA Not being able to stop or co ntrol worrying 0 06/21/2025 9:42 AM Irene Pham MA Worrying too much about diff erent things 0 06/21/2025 9:42 AM Irene Pham MA Trouble relaxing 0 06/21/2025 9:42 AM Irene Dang MA Being so restless that it is hard to sit still 0 06/21/2025 9:42 AM Irene Pham MA Becoming easily annoyed or irritable 0 02/2025 9:42 AM Irene Pham MA Feeling afraid as if somethi ng awful might happen 0 06/21/2025 9:42 AM Irene Pham MA GINETTE-7 Total Score 0 06/21/2025 9:42 AM Irene Pham MA documented as of this encounter Progress Notes * Tanisha Woodruff MD - 06/21/2025 10:00 AM EST Reji Maxwell is a 55 y.o. male with developmental delay, allergic rhinitis, dyslipidemia, pseudotumor cerebri who presents to the office today for a comprehensive exam. Today patient, has no concerns. Patients has a girlfriend, but denies sexual activity. Agrees to pPCV 20 vaccine but want to get COVID vaccine on a separate day. No other questions or concerns. Pts sister Sherrell is his caregiver. He attends quality of life day program. He stays active walking and exercising. Pt had his eye exam done recently. Social History Tobacco: denied Drugs: none Alcohol: No Review of Systems Constitutional: Negative for fever and unexpected weight change. Respiratory: Negative for shortness of breath. Cardiovascular: Negative for chest pain. Gastrointestinal: Negative for abdominal pain. Genitourinary: Negative for difficulty urinating. Current Outpatient Medications: acetaZOLAMIDE (Diamox) 500 MG 12 hr capsule, Take 500 mg by mouth [address] Apodaca, Disp: , Rfl: Blood Pressure Monitor kit, Check blood pressure twice a wee. Dx hypertension, Disp: 1 kit, Rfl: 0 fluticasone (Flonase) 50 MCG/ACT nasal spray, SPRAY 1 - 2 SPRAY BY INTRANASAL ROUTE EVERY DAY IN EACH NOSTRIL NEEDED, Disp: 48 mL, Rfl: 11 loratadine (Claritin) 10 MG tablet, Take 1 tablet (10 mg) by mouth Once per day. (Patient not taking: Reported on 05/22/2025), Disp: 90 tablet, Rfl: 3 No Known Allergies Past Medical History: Diagnosis Date Allergic rhinitis 09/11/2012 Benign intracranial hypertension 08/20/2022 -On eye exam on 06/14, Dr. Tolliver noted b/l disc edema. -MRI on 06/20 showed distention of the bilateral optic nerve sheaths and protrusion of the optic heads into the posterior globes compatible with elevated intracranial pressure. The sella is enlarged, smoothly remodeled, and partially empty. These findings may be on the basis of idiopathic intracranial hypertension. No mass or acute intracr Cognitive developmental delay 09/11/2012 His sister is his caregiver. Dyslipidemia 09/11/2012 Much improved. He lost 15 lbs with lifestyle modification and well-controlled diet. -continue lifestyle modification Past Surgical History: Procedure Laterality Date IR LUMBAR PUNCTURE 05/19/2023 IR LUMBAR PUNCTURE Family History Problem Relation Name Age of Onset Prostate cancer Father Objective Visit Vitals BP 130/86 (BP Location: Left arm, Patient Position: Sitting, BP Cuff Size: Adult) Pulse (!) 122 Temp 98.9 ??F (37.2 ??C) (Oral) Resp 20 Ht 5' 9.25 (1.759 m) Wt 193 lb 6.4 oz (87.7 kg) SpO2 98% BMI 28.35 kg/m?? Smoking Status Never BSA 2.07 m?? Physical Exam Constitutional: Appearance: Normal appearance. HENT: Right Ear: Tympanic membrane normal. Left Ear: Tympanic membrane normal. Nose: Nose normal. Mouth/Throat: Pharynx: Oropharynx is clear. Eyes: Extraocular Movements: Extraocular movements intact. Pupils: Pupils are equal, round, and reactive to light. Cardiovascular: Rate and Rhythm: Normal rate and regular rhythm. Heart sounds: Normal heart sounds. Pulmonary: Effort: Pulmonary effort is normal. Breath sounds: Normal breath sounds. No wheezing. Abdominal: General: Abdomen is flat. Palpations: Abdomen is soft. Tenderness: There is no abdominal tenderness. Hernia: A hernia is present. Hernia is present in the ventral area. Musculoskeletal: General: Normal range of motion. Skin: General: Skin is warm and dry. Neurological: General: No focal deficit present. Mental Status: He is alert. Psychiatric: Mood and Affect: Mood normal. Behavior: Behavior normal. Hans was seen today for annual exam. Diagnoses and all orders for this visit: Benign intracranial hypertension (Primary) Dyslipidemia - Hepatic Function Panel; Future - Lipid Panel, Standard; Future Cognitive developmental delay Family history of prostate cancer - PSA,Total; Future Dietary counseling Exercise counseling Overweight - Basic Metabolic Panel; Future Other specified health status Encounter for immunization - PCV-20 VACCINE 6 wks + Screening for diabetes mellitus - Hemoglobin A1c; Future Anemia, unspecified type - CBC auto differential; Future - Ferritin; Future - TSH with Reflex to Free T4; Future - Iron And Total Iron Binding Capacity; Future - Vitamin B12 (Cobalamin) and Folate Panel, Serum; Future 55 y.o. male physical exam. Assessment & Plan Benign intracranial hypertension -On eye exam on 06/14, Dr. Tolliver noted b/l disc edema. -MRI on 06/20 showed distention of the bilateral optic nerve sheaths and protrusion of the optic heads into the posterior globes compatible with elevated intracranial pressure. The sella is enlarged, smoothly remodeled, and partially empty. These findings may be on the basis of idiopathic intracranial hypertension. No mass or acute intracranial abnormality is seen. -LP was done 08/02/2020. Opening pressure was 31 cm Hg. -neurology visit 02/2021 and acetazolamide 500mg bid started -neurology visit 06/2021 for lumbar puncture done -neurology visit 06/2022, continue acetazolamide -no disc abnormality on optho exam with Dr. Asif on 10/2021 -note form 11/16/22 reviewed ? Mild disc edema OS; no significant disc edema, pt on diamox per neuro -note from 2024 requested 06/21/25 -neruo apt changed by sister and he has in future per pt Dyslipidemia Lab Results Component Value Date CHOL 177 12/14/2023 TRIG 81 12/14/2023 HDL 43 12/14/2023 LDLCHOLCAL 118 (H) 12/14/2023 -continue lifestyle modification Much improved. He lost 15 lbs with lifestyle modification and well-controlled diet. Orders: Hepatic Function Panel; Future Lipid Panel, Standard; Future Cognitive developmental delay His sister, Sherrell Weaver, is his caregiver. Family history of prostate cancer Lab Results Component Value Date PSA 0.72 12/14/2023 PSA 0.68 12/23/2022 Orders: PSA,Total; Future Dietary counseling Dietary Recommendations: Fruits, vegetables, whole grains, protein foods, and fat-free or low-fat dairy products are healthychoices. Eat different types of protein foods in your diet. This can include seafood, lean meats, poultry, beans, peas, lentils, nuts, seeds, soy products, and eggs. Limit foods and beverages higher in added sugars, saturated fat, and sodium. Exercise Recommendations: At least 150 minutes of moderate-intensity physical activity per week, or an equivalent combinationof moderate- and vigorous-intensity activity Exercise counseling Overweight Orders: Basic Metabolic Panel; Future Other specified health status -next comprehensive annual evaluation due after 06/21/26 -eye care facilitated by followed by Dr. David Asif of [facility] -dental home is advised pt to call [facility] for appointment -dmitry care proxy filed on 12/07/2023 Encounter for immunization Orders: PCV-20 VACCINE 6 wks + Screening for diabetes mellitus Orders: Hemoglobin A1c; Future Anemia, unspecified type Orders: CBC auto differential; Future Ferritin; Future TSH with Reflex to Free T4; Future Iron And Total Iron Binding Capacity; Future Vitamin B12 (Cobalamin) and Folate Panel, Serum; Future -Normal growth and development. -Anticipatory guidance discussed. -Preventative care / harm reduction discussed. Follow up in about 1 year (around 06/21/2026) for physical. This note was drafted using Ambient (AI) technology. The patient/patient's guardian has been informed and has consented to the use of this technology: Yes documented in this encounter Miscellaneous Notes * Assessment & Plan Note - Tanisha Woodruff MD - 06/21/2025 10:00 AM EST Associated Problem(s): Benign intracranial hypertension -On eye exam on 06/14, Dr. Tolliver noted b/l disc edema. -MRI on 06/20 showed distention of the bilateral optic nerve sheaths and protrusion of the optic heads into the posterior globes compatible with elevated intracranial pressure. The sella is enlarged, smoothly remodeled, and partially empty. These findings may be on the basis of idiopathic intracranial hypertension. No mass or acute intracranial abnormality is seen. -LP was done 08/02/2020. Opening pressure was 31 cm Hg. -neurology visit 02/2021 and acetazolamide 500mg bid started -neurology visit 06/2021 for lumbar puncture done -neurology visit 06/2022, continue acetazolamide -no disc abnormality on optho exam with Dr. Asif on 10/2021 -note form 11/16/22 reviewed ? Mild disc edema OS; no significant disc edema, pt on diamox per neuro -note from 2024 requested 06/21/25 -neruo apt changed by sister and he has in future per pt * Assessment & Plan Note - Tanisha Woodruff MD - 06/21/2025 10:00 AM EST Associated Problem(s): Dyslipidemia Lab Results Component Value Date CHOL 177 12/14/2023 TRIG 81 12/14/2023 HDL 43 12/14/2023 LDLCHOLCAL 118 (H) 12/14/2023 -continue lifestyle modification Much improved. He lost 15 lbs with lifestyle modification and well-controlled diet. Orders: Hepatic Function Panel; Future Lipid Panel, Standard; Future * Assessment & Plan Note - Tanisha Woodruff MD - 06/21/2025 10:00 AM EST Associated Problem(s): Cognitive developmental delay His sister, Sherrell Weaver, is his caregiver. * Assessment & Plan Note - Tanisha oWodruff MD - 06/21/2025 10:00 AM EST Associated Problem(s): Family history of prostate cancer Lab Results Component Value Date PSA 0.72 12/14/2023 PSA 0.68 12/23/2022 Orders: PSA,Total; Future * Assessment & Plan Note - Tanisha Woodruff MD - 06/21/2025 10:00 AM EST Associated Problem(s): Other specified health status -next comprehensive annual evaluation due after 06/21/26 -eye care facilitated by followed by Dr. David Asif of [facility] -dental home is advised pt to call [facility] for appointment -dmitry care proxy filed on 12/07/2023 documented in this encounter Plan of Treatment Upcoming Encounters Date Type Department Care Team (Late st Contact Info) Description 07/02/2025 3:00 PM EST Office Visit [facility] ADULT DENTAL [address] [place] [address] Ayesha Holcomb 08/01/2025 2:30 PM EST Office Visit [facility] ADULT DENTAL [address] [place] [address] Kevin Katz DDS [address] [place], [place] [phone] Scheduled Orders Name Type Priority Associated Diagnoses Orde r Schedule Hepatic Function Panel Lab Routine Dyslipidemia Expected: 06/21/2025 (Approximate), Expires: 06/21/2026 Lipid Panel, Standard Lab Routine Dyslipidemia Expected: 06/21/2025 (Approximate), Expires: 06/21/2026 Hemoglobin A1c Lab Routine Screening for diabetes mellitus Expected: 06/21/2025 (Approximate), Expires: 06/21/2026 Basic Metabolic Panel Lab Routine Overweight Expected: 06/21/2025 (Approximate), Expires: 06/21/2026 PSA,Total Lab Routine Family history of prostate cancer Expected: 06/21/2025, Expires: 06/21/2026 CBC auto differential Lab Routine Anemia, unspecified type Expected: 06/21/2025 (Approximate), Expires: 06/21/2026 Ferritin Lab Routine Anemia, unspecified type Expected: 06/21/2025, Expires: 06/21/2026 TSH with Reflex to Free T4 Lab Routine Anemia, unspecified type Expected: 06/21/2025 (Approximate), Expires: 06/21/2026 Iron And Total Iron Binding Capacity Lab Routine Anemia, unspecified type Expected: 06/21/2025, Expires: 06/21/2026 Vitamin B12 (Cobalamin) and Folate Panel, Serum Lab Routine Anemia, unspecified type Expected: 06/21/2025, Expires: 06/21/2026 documented as of this encounter Visit Diagnoses Diagnosis Benign intracranial hypertension- Primary Dyslipidemia Other and unspecified hyperlipidemia Cognitive developmental delay Family history of prostate cancer Family history of malignant neoplasm of prostate Dietary counseling Dietary surveillance and counseling Exercise counseling Overweight Other specified health status Encounter for immunization Screening for diabetes mellitus Anemia, unspecified type documented in this encounter Additional Health Concerns Assessment Noted Time PHQ-9 Depression Total Score: 0 06/21/20 25 9:41 AM EST documented as of this encounter Care Teams Manager Agriculture Relationship Specialty Start Date End Date Tanisha Woodruff MD [address] [place] [address] PCP - General Family Medicine 08/15/18 David Asif MD [address] [place] [address] [address] [place] [address] Ophthalmology 09/06/24 Manolo Franco MD [address] [place] [address] Dr Romero [address] [place] [id number] Neurology 09/06/24 Quality [facility] Day [facility] Research Physician 06/21/25 documented as of this encounter
--- OUTSIDE RECORDS SUMMARY | 2025-06-22 08:25 | XMS_ITS | Encounter Summary ---
Author Organization [employer] Address [address] [facility] 7t [place] [address] Care Team Providers Care Chief Controller Center Name Role Phone Tanisha Woodruff MD Primary Care Provider [phone] David Asif MD Unavailable [phone] Manolo Franco MD Unavailable [phone] Reason for Visit * Reason Onset Date Comments next appt 06/17/2025 Encounter Details Date Type Department Care Team ([facility] st Contact Info) Description 06/17/2025 Telephone [facility] ADULT DENTAL [address] [place] [address] Kevin Katz DDS [address] [place] [address] next appt Social History Tobacco Use Types Packs/Day Years [...] AM EDT documented as of this encounter Miscellaneous Notes * Telephone Encounter - Sirisha Anderson - 06/17/2025 4:09 PM EST Patient finished appointment in back. desk attendant done for the day. Please reach out to patient for scheduling DR documented in this encounter Plan of Treatment Upcoming Encounters Date Type Department Care Team (Late st Contact Info) Description 07/02/2025 3:00 PM EST Office Visit [facility] ADULT DENTAL [address] [place] [address] Ayesha Holcomb 08/01/2025 2:30 PM EST Office Visit [facility] ADULT DENTAL [address] [place] [address] Kevin Katz DDS [address] [place] [address] documented as of this encounter Visit Diagnoses Not on filedocumented in this encounter Additional Health Concerns Assessment Noted Time PHQ-9 Depression Total Score: 0 12/07/19 24 1:52 PM EDT documented as of this encounter Care Teams Chief Controller Center Relationship Specialty Start Date End Date Tanisha Woodruff MD [address] [place] [address] PCP - General Family Medicine 08/15/18 David Asif MD [address] [place] [address] [address] [place] [address] Ophthalmology 09/06/24 Manolo Franco MD [address] [place] [address] Dr Romero [address] [place] [id number] Neurology 09/06/24 [facility] Stone Processing Machine Operator 06/21/25 documented as of this encounter
--- OUTSIDE RECORDS SUMMARY | 2025-06-22 08:25 | XMS_ITS | Encounter Summary ---
Author Organization [employer] Address [address] [facility] [address]t [place] [address] Care Team Providers Care Mill Stenciler Name Role Phone Tanisha Woodruff MD Primary Care Provider [phone] David Asif MD Unavailable [phone] Manolo Franco MD Unavailable [phone] Encounter Details Date Type Department Care Team (Late st Contact Info) Description 06/21/2025 Telephone [facility] MEDICINE [address] [place] [address] Tanisha Woodruff MD [address] [place], [place] [phone] Social History Tobacco Use Types Packs/Day Years [...] AM EDT documented as of this encounter Functional Status * Over the past 2 weeks, how often have you been bothered by any of the following problems? Question Answer Date of Assessment Author Patient Health Questionnaire-2 Score 0 02/2025 9:41 AM Irene Pham MA * Little interest or pleasure in doing things Answer Date of Assessment Author Not at all 06/21/2025 9:41 AM Raymond Pham MA * Feeling down, depressed, or hopeless Answer Date of Assessment Author Not at all 06/21/2025 9:41 AM Raymond Pham MA * Trouble falling or staying asleep, or sleeping too much Answer Date of Assessment Author Not at all 06/21/2025 9:41 AM Raymond Pham MA * Feeling tired or having little energy Answer Date of Assessment Author Not at all 06/21/2025 9:41 AM Raymond Pham MA * Poor appetite or overeating Answer Date of Assessment Author Not at all 06/21/2025 9:41 AM Raymond Pham MA * Feeling bad about yourself - or that you are a failure or have let yourself or your family down Answer Date of Assessment Author Not at all 06/21/2025 9:41 AM Raymond Pham MA * Trouble concentrating on things, such as reading the newspaper or watching television Answer Date of Assessment Author Not at all 06/21/2025 9:41 AM Raymond Pham MA * Moving or speaking so slowly [...] of Assessment Author 0 06/21/2025 9:41 AM Raymond Pham MA * Over the last 2 weeks, [...] Pham MA documented as of this encounter Miscellaneous Notes * Telephone Encounter - Tanisha Woodruff MD - 06/21/2025 9:49 AM EST Please reqest note from dr. Asif documented in this encounter Plan of Treatment Upcoming Encounters Date Type Department Care Team (Late st Contact Info) Description 07/02/2025 3:00 PM EST Office Visit [facility] ADULT DENTAL [address] [place] [address] Ayesha Holcomb 08/01/2025 2:30 PM EST Office Visit [facility] ADULT DENTAL [address] [place] [address] Kevin Katz DDS [address] [place] [address] documented as of this encounter Visit Diagnoses Not on filedocumented in this encounter Additional Health Concerns Assessment Noted Time PHQ-9 Depression Total Score: 0 06/21/20 25 9:41 AM EST documented as of this encounter Care Teams Mill Stenciler Relationship Specialty Start Date End Date Tanisha Woodruff MD [address] [place] [address] PCP - General Family Medicine 08/15/18 David Asif MD [address] [place] [id number] Ophthalmology 09/06/24 Manolo Franco MD [address] [place] [address] Dr Romero [address] [place] [id number] Neurology 09/06/24 [facility] Senior Cyber Intelligence Analyst 06/21/25 documented as of this encounter
--- OUTSIDE RECORDS SUMMARY | 2025-06-22 08:25 | XMS_ITS | Encounter Summary ---
Author Organization [employer] Address [address] [facility] 7t [place] [address] Care Team Providers Care Underwriting Sales Representative Name Role Phone Tanisha Woodruff MD Primary Care Provider [phone] David Asif MD Unavailable [phone] Manolo Franco MD Unavailable [phone] Encounter Details Date Type Department Care Team (Latest Contact Info) Description 06/21/2025 Travel Social History Tobacco Use Types Packs/Day Years [...] Pham MA documented as of this encounter Plan of Treatment Upcoming Encounters Date Type Department Care Team (Late st Contact Info) Description 07/02/2025 3:00 PM EST Office Visit [facility] ADULT DENTAL [address] [place] [address] Ayesha Holcomb 08/01/2025 2:30 PM EST Office Visit [facility] ADULT DENTAL [address] [place] [address] Kevin Katz DDS [address] [place] [address] documented as of this encounter Visit Diagnoses Not on filedocumented in this encounter Additional Health Concerns Assessment Noted Time PHQ-9 Depression Total Score: 0 06/21/20 9:41 AM EST documented as of this encounter Care Teams Underwriting Sales Representative Relationship Specialty Start Date End Date Tanisha Woodruff MD [address] [place] [id number] PCP - General Family Medicine 08/15/18 David Asif MD [address] [place] [address] [address] [place] [address] Ophthalmology 09/06/24 Manolo Franco MD [address] [place] [address] Dr Romero [address] [place] [id number] Neurology 09/06/24 [facility] Molasses And Caramel Operator 06/21/25 documented as of this encounter
--- OUTSIDE RECORDS SUMMARY | 2025-06-22 08:25 | XMS_ITS | Encounter Summary ---
Author Organization [employer] Address [address] [facility] 7[address] [place] [address] Care Team Providers Care Biological Photographer Name Role Phone Tanisha Woodruff MD Primary Care Provider David Asif MD Unavailable [phone] Manolo Franco MD Unavailable [phone] Encounter Details Date Type Department Care Team (Late st Contact Info) Description 11/18/2022 Telephone [facility] MEDICINE [address] [place] [address] Tanisha Woodruff MD [address] [place], [place] [phone] Social History Tobacco Use Types Packs/Day Years Used Date Smoking Tobacco: Never Smokeless Tobacco: Never Sex and Gender Information Value Date Recorded Sex Assigned at Male 06/14/2022 10:15 AM EDT Legal Sex Male 10:15 AM EDT Gender Identity Male 06/14/2022 10:15 AM EDT Sexual Orientation Choose not to disclose 2021 10:15 AM EDT documented as of this encounter Plan of Treatment Upcoming Encounters Date Type Department Care Team (Late st Contact Info) Description 07/02/2025 3:00 PM EST Office Visit [facility] ADULT DENTAL [address] [place] [address] [phone] Ayesha Holcomb 08/01/2025 2:30 PM EST Office Visit [facility] ADULT DENTAL [address] [place], [place] [phone] Kevin Katz DDS [address] [place], [place] [phone] documented as of this encounter Visit Diagnoses Not on filedocumented in this encounter Care Teams Biological Photographer Relationship Specialty Start Date End Date Tanisha Woodruff MD [address] [place] [phone] PCP - General Family Medicine 08/15/18 David Asif MD [address] [place] [address] [address] [place] [address] Ophthalmology 09/06/24 Manolo Franco MD [address] [place] [address] Dr Romero [address] [place] [id number] Neurology 09/06/24 [facility] Rental Representative 06/21/25 documented as of this encounter
--- OUTSIDE RECORDS SUMMARY | 2025-06-22 08:25 | XMS_ITS | Encounter Summary ---
Author Organization [employer] Address [address] [facility] 7[address] [place] [address] Care Team Providers Care Autocad Operator Name Role Phone Tanisha Woodruff MD Primary Care Provider [phone] David Asif MD Unavailable [phone] Manolo Franco MD Unavailable [phone] Reason for Visit * Reason Onset Date Comments Chart Prep 06/20/2025 Encounter Details Date Type Department Care Team ([facility] st Contact Info) Description 06/20/2025 Telephone [facility] MEDICINE [address] [place], [place] [phone] Tanisha Woodruff MD [address] [place], [place] [phone] Chart Prep Social History Tobacco Use Types Packs/Day Years [...] encounter Miscellaneous Notes * Telephone Encounter - Rebekah Gonzalez MA - 06/20/2025 11:29 AM EST Chart Prep Labs: done Images: not applicable Referrals: not applicable Vaccines due: Covid and PCV20 Screenings: Alcohol/Substance Use Screening Overdue care gaps: SBIRT, SDOH, PHQ-9, GINETTE-7, Oral health screening, Disability screen, and Tobacco documented in this encounter Plan of Treatment Upcoming Encounters Date Type Department Care Team (Late st Contact Info) Description 07/02/2025 3:00 PM EST Office Visit [facility] ADULT DENTAL [address] [place] [address] Ayesha Holcomb 08/01/2025 2:30 PM EST Office Visit [facility] ADULT DENTAL [address] [place] [address] Kevin Katz DDS [address] [place] [address] documented as of this encounter Visit Diagnoses Not on filedocumented in this encounter Additional Health Concerns Assessment Noted Time PHQ-9 Depression Total Score: 0 12/07/19 24 1:52 PM EDT documented as of this encounter Care Teams Autocad Operator Relationship Specialty Start Date End Date Tanisha Woodruff MD [address] [place] [address] PCP - General Family Medicine 08/15/18 David Asif MD [address] [place] [address] Ophthalmology 09/06/24 Manolo Franco MD [address] [place] [address] [place] [address] Neurology 09/06/24 documented as of this encounter
--- OUTSIDE RECORDS SUMMARY | 2025-06-22 08:25 | XMS_ITS | Clinical Summary ---
Author Organization [employer] Address [address] [facility] 7t [place] [address] Care Team Providers Care Wire Inspector Name Role Phone Tanisha Woodruff MD Primary Care Provider [phone]- [phone] David Asif MD Unavailable [phone] Manolo Franco MD Unavailable Allergies No known active allergies Medications loratadine (Claritin) 10 MG tabletIndication s:Seasonal allergic rhinitis, unspecified trigger Take 1 tablet (10 mg) by mouth Once per day. 90 tablet 3 12/07/19 24 Active Additional Information Patient not taking.Reported on 05/22/2025 Blood Pressure Monitor kitIndications:E levated blood pressure reading Check blood pressure twice a wee. Dx hypertension 1 kit 12/07/19 24 Active acetaZOLAMIDE (Diamox) 500 MG 12 hr capsuleIndicatio ns:Idiopathic Intracranial Hypertension Take 500 mg by mouth [address] Apodaca Active fluticasone (Flonase) 50 MCG/ACT nasal sprayIndications :Seasonal allergic rhinitis, unspecified trigger SPRAY 1 - 2 SPRAY BY INTRANASAL ROUTE EVERY DAY IN EACH NOSTRIL NEEDED 48 mL 11 06/07/20 24 Active chlorhexidine (Peridex) 0.12 % solution Use 15 mL in the mouth or throat if needed (for mouthwash 15 ml for 30 seconds, swish and spit) for up to 14 days. 473 mL 1 05/22/20 25 025 Active Problems Patient Care Coordination No te Formatting of this note migh t be different from the original. [facility] [place] Munitions Worker: Tati Landscape Crew Leader Agency: [employer] Problem Noted Date Diagnosed Date Elevated blood pressure reading 12/07/2023 Overview (04/18/2024): -elevated BP, prescribed patient a at home BP machine to monitor BP 12/07/2023 -lifestyle modification discussed -blood pressures from [facility] day [facility] sent 04/18/24 all wnl -continue to monitor Assessment & Plan (04/18/2024 7:44 PM EDT): -elevated BP, prescribed patient a at home BP machine to monitor BP 12/07/2023 -lifestyle modification discussed -blood pressures from [facility] day [facility] sent 04/18/24 all wnl -continue to monitor Assessment & Plan (12/07/2023 2:16 PM EDT): -elevated BP, prescribed patient a at home BP machine to monitor BP 12/07/2023 -lifestyle modification discussed -will see back in 2 weeks for follow up to BP Cardiac risk counseling 12/07/2023 Overview (04/24/2025): The ASCVD Risk score (Esme QUINN, et al., 2019) failed to calculate for the following reasons: Unable to determine if patient is Non- Other specified health status 01/26/2023 Overview (06/21/2025): -next comprehensive annual evaluation due after 06/21/26 -eye care facilitated by followed by Dr. David Asif of [facility] -dental home is advised pt to call [facility] for appointment -dmitry care proxy filed on 12/07/2023 Assessment & Plan (06/21/2025 9:59 AM EST): -next comprehensive annual evaluation due after 06/21/26 -eye care facilitated by followed by Dr. David Asif of [facility] -dental home is advised pt to call [facility] for appointment -dmitry care proxy filed on 12/07/2023 Assessment & Plan (12/07/2023 2:22 PM EDT): -next physical exam due after December 06, 2024 -eye care facilitated by followed by Dr. David Asif of [facility] -dental home is advised pt to call [facility] for appointment -dmitry care proxy filed on 12/07/2023 Tubular adenoma 11/25/2022 Overview (12/07/2023): -colonoscopy 07/2018 with sessile serrated polyp, due to size 3 year follow up recommend -colonoscopy intake in Dr. Awan office done 11/05/2021 -colonoscopy done 11/01/[address] Dorsey that showed tubular adenoma. Assessment & Plan (12/07/2023 2:22 PM EDT): -colonoscopy 07/2018 with sessile serrated polyp, due to size 3 year follow up recommend -colonoscopy intake in Dr. Awan office done 11/05/2021 -colonoscopy done 11/01/[address] Dorsey that showed tubular adenoma. Assessment & Plan (11/25/2022 1:50 PM EDT): Colonoscopy done 11/01/[address] Dorsey that showed tubular adenoma. -Follow up 5 years. Benign intracranial hypertension 08/20/2022 Overview (06/21/2025): -On eye exam on 06/14, Dr. Tolliver [...] and he has in future per pt Assessment & Plan (06/21/2025 10:57 AM EST): -On eye exam on 06/14, Dr. Tolliver [...] and he has in future per pt Assessment & Plan (12/07/2023 1:55 PM EDT): -On eye exam on 06/14, Dr. Tolliver [...] optho exam with Dr. Asif on 10/2021 Assessment & Plan (11/23/2022 11:06 AM EDT): -On eye exam on 06/14, Dr. Tolliver [...] optho exam with Dr. Asif on 10/2021 Optic disc edema 08/20/2022 Family history of prostate cancer 08/20/2022 Overview (06/20/2025): Lab Results Component Value Date PSA 0.72 12/14/2023 PSA 0.68 12/23/2022 Assessment & Plan (06/21/2025 9:59 AM EST): Lab Results Component Value Date PSA 0.72 12/14/2023 PSA 0.68 12/23/2022 Orders: PSA,Total; Future Allergic rhinitis 09/11/2012 Cognitive developmental delay 09/11/2012 Overview (11/23/2022): His sister is his caregiver. Assessment & Plan (06/21/2025 9:59 AM EST): His sister, Sherrell Weaver, is his caregiver. Assessment & Plan (04/18/2024 12:02 PM EDT): His sister is his caregiver. Assessment & Plan (12/07/2023 2:19 PM EDT): His sister is his caregiver. Assessment & Plan (11/23/2022 11:07 AM EDT): His sister is his caregiver. Dyslipidemia 09/11/2012 Overview (06/21/2025): Lab Results Component Value Date CHOL 177 12/14/2023 TRIG 81 12/14/2023 HDL 43 12/14/2023 LDLCHOLCAL 118 (H) 12/14/2023 -continue lifestyle modification Much improved. He lost 15 lbs with lifestyle modification and well-controlled diet. Assessment & Plan (06/21/2025 9:59 AM EST): Lab Results Component Value Date CHOL 177 12/14/2023 TRIG 81 12/14/2023 HDL 43 12/14/2023 LDLCHOLCAL 118 (H) 12/14/2023 -continue lifestyle modification Much improved. He lost 15 lbs with lifestyle modification and well-controlled diet. Orders: Hepatic Function Panel; Future Lipid Panel, Standard; Future Assessment & Plan (04/18/2024 12:04 PM EDT): Much improved. He lost 15 lbs with lifestyle modification and well-controlled diet. -continue lifestyle modification Assessment & Plan (12/07/2023 2:20 PM EDT): Much improved. He lost 15 lbs with lifestyle modification and well-controlled diet. -continue lifestyle modification Assessment & Plan (11/23/2022 11:06 AM EDT): Much improved. He lost 15 lbs with lifestyle modification and well-controlled diet. -Cholesterol profile from 01/2019 -Cholesterol profile almost at goal november 2020. Resolved Problems Problem Noted Date Diagnosed Date Resolved Date Polyp of colon 08/20/2022 09/06/2024 Overview (12/07/2023): -colonoscopy 07/2018 with sessile serrated polyp, due to size 3 year follow up recommend -colonoscopy intake in Dr. Awan office done 11/05/2021 -colonoscopy done 11/01/[address] Dorsey that showed tubular adenoma. Assessment & Plan (12/07/2023 2:20 PM EDT): -colonoscopy 07/2018 with sessile serrated polyp, due to size 3 year follow up recommend -colonoscopy intake in Dr. Awan office done 11/05/2021 -colonoscopy done 11/01/[address] Dorsey that showed tubular adenoma. Assessment & Plan (11/25/2022 1:51 PM EDT): -colonoscopy 07/2018 with sessile serrated polyp, due to size 3 year follow up recommend -colonoscopy intake in Dr. Awan office done 11/05/2021 Colonoscopy done 11/01/[address] Dorsey that showed tubular adenoma. Encounters Date Type Department Care Team Description 06/21/2025 10:00 AM EST Office Visit [facility] [address] [place] [id number] Tanisha Woodruff MD Benign intracranial hypertension (Primary Dx); Dyslipidemia; Cognitive developmental delay; Family history of prostate cancer; Dietary counseling; Exercise counseling; Overweight; Other specified health status; Encounter for immunization; Screening for diabetes mellitus; Anemia, unspecified type 06/21/[address] [facility] [address] [place] [phone] Tanisha Woodruff MD 06/21/2025 Travel 06/20/[address] [facility] [address] [place] [phone] Tanisha Woodruff MD Chart Prep 06/17/2025 3:00 PM EST Office Visit [facility] [address] [place] [address] Ayesha Holcomb Subgingival dental calculus (Primary Dx); Supragingival dental calculus; Periodontal disease; Bleeding gums 06/17/[address] [facility] [address] [place] [address] Kevin Katz DDS next appt 05/24/[address] [facility] [address] [place] [address] Ayesha Holcomb 05/22/2025 8:00 AM EDT Office Visit [facility] [address] [place] [address] Ayesha Holcomb Periodontal disease (Primary Dx); Encounter for dental examination; Dental calculus; Dental plaque; Poor oral hygiene; Halitosis; Bleeding gums; Gingival enlargement 04/23/[address] [facility] [address] [place] [address] Tanisha Woodruff MD chart prep 04/16/[address] [facility] [address] [place] [address] Tanisha Woodruff MD Pre-visit Planning (Pre-visit planning - UNABLE TO COMPLETE ) from Last 3 Months Immunizations Immunization Administration Dates Next Due Hep B, adult 03/22/1997,11/10/1996,09/16/1996 Influenza Injectable Quadriv alant Preservative Free IIV4 MDCK 05/13/2022,08/25/2016 Influenza injectable quadriv alent preservative free 04/27/2023,05/19/2021,05/20/2020,2018,05/16/2018,05/16/2017 Influenza, IIV3, injectable 05/14/2014, 9 Influenza, seasonal, injecta ble, preservative free 05/13/2025,04/30/2024 Pfizer Covid-19 Vaccine 12+ 12/07/2023 Pfizer Covid-19 Vaccine 12+ Bivalent 11/25/2022 Pneumococcal Conjugate PCV 20 06/21/2025 TD (adult), 2 Lf tetanus tox oid, preservative free, adsorbed 08/10/2006 Td (adult), 5 Lf tetanus tox oid, preservative free, adsorbed 08/23/2016 Tdap 01/13/2015 Zoster, Recombinant 09/17/2021,07/16/2021 Family History Medical History Relation Name Comments Prostate cancer Father Relation Name Status Comments Father Social History Tobacco Use Types Packs/Day Years Used Date Smoking Tobacco: Never Smokeless Tobacco: Never Tobacco Cessation:Counseling Given: Not Answered Depression Answer Date Recorded Patient Health Questionnaire-9 [...] not to disclose 2021 10:15 AM EDT Last Filed Vital Signs Vital Sign Reading [...] Mass Index 28.35 06/21/2025 9:40 AM EST Plan of Treatment Upcoming Encounters Date Type Department Care Team (Late st Contact Info) Description 07/02/2025 3:00 PM EST Office Visit [facility] [address] [place] [address] Ayesha Holcomb 08/01/2025 2:30 PM EST Office Visit [facility] [address] [place] [address] Kevin Katz, DDS [address] [place] [address] Health Maintenance Due Date Last Done Comments CT Colonography 1968 Dental Prophylaxis 1968 FIT DNA/Cologuard 1968 FIT 1968 FOBT 1968 Sigmoidoscopy 1968 COVID-19 Vaccine (2024- season) 2025 12/07/2023, 11/25/2022, 11/20/2021, Additional history exists Dental X-Ray: Bitewings 11/17/2025 11/16/2024 Dental Oral Exam 11/21/2025 05/22/2025, 11/16/2024 Alcohol/Substance Use Screening 06/21/2026 06/21/2025 Depression Screening 06/21/2026 06/21/2025, 06/21/20 25 Disability Screening 06/21/2026 06/21/2025 SDOH Screening 06/21/2026 06/21/2025 Tobacco Screening 06/21/2026 06/21/2025 DTaP/Tdap/Td Vaccines (3 - Td or Tdap) 08/23/2026 08/23/2016, 01/13/2015, 08/10/2006 Colonoscopy 11/03/2027 11/02/2022 Colorectal Cancer Screening 11/03/2027 Dental X-Ray: Full Mouth 11/18/2027 11/16/2024 Lipid Panel 12/13/2028 12/14/2023, 11/21/2020 RSV Patients and Patients Aged 60 years or older (1 - 1-dose 75+ series) 02/23/2043 Hepatitis B Vaccines Completed 03/22/1997, 11/10/1996, 09/16/1996 HIV Screening Completed 01/06/2021 Zoster Vaccines Completed 09/17/2021, 07/16/2021 Hepatitis C Screening Completed 11/25/2022 Influenza Vaccine Completed 05/13/2025, , 04/27/2023, Additional history exists Pneumococcal Vaccine: 50+ Years Completed 06/21/2025 HIB Vaccines Aged Out No longer eligi ble based on patient's age to complete this topic HPV Vaccines Aged Out No longer eligi ble based on patient's age to complete this topic Hepatitis A Vaccines Aged Out No long er eligible based on patient's age to complete this topic IPV Vaccines Aged Out No longer eligi ble based on patient's age to complete this topic Meningococcal B Vaccine Aged Out No l onger eligible based on patient's age to complete this topic Meningococcal Vaccine Aged Out No inez matt eligible based on patient's age to complete this topic RSV under 20 months Aged Out No longe r eligible based on patient's age to complete this topic Rotavirus Vaccines Aged Out No longer eligible based on patient's age to complete this topic Procedures Procedure Name Priority Date/Time Associated Diagnosis Comments CASE PRESENTATION, DETAILED AND EXTENSIVE TREATMENT PLANNING Routine 06/17/2025 3:00 PM EST ORAL HYGIENE INSTRUCTIONS Routine 06/17/2025 3:00 PM EST Subgingival dental calculus Supragingival dental calculus Periodontal disease Bleeding gums LL PERIODONTAL SCALING AND ROOT PLANING - [...] PRESENTATION, DETAILED AND EXTENSIVE TREATMENT PLANNING Routine 05/22/2025 8:00 AM EDT ORAL HYGIENE INSTRUCTIONS Routine 05/22/2025 8:00 AM EDT Periodontal disease Dental calculus Dental plaque Poor oral hygiene Halitosis Bleeding gums Gingival enlargement SCALING IN PRESENCE OF MOD-SEVERE GING INFL - FULL MOUTH, AFTER ORAL EVAL Routine 05/22/2025 8:00 AM EDT Periodontal disease Dental calculus Dental plaque Poor oral hygiene Halitosis Bleeding gums Gingival enlargement FULL MOUTH DEBRIDEMENT TO ENABLE A COMPREHENSIVE ORAL EVALUATION AND DIAGNOSIS ON A SUBSEQUENT VISIT Routine 05/22/2025 8:00 AM EDT Periodontal disease Dental calculus Dental plaque Poor oral hygiene Halitosis Bleeding gums Gingival enlargement COMPREHENSIVE PERIODONTAL EVALUATION - NEW OR ESTABLISHED PATIENT Routine 05/22/2025 8:00 AM EDT Periodontal disease Encounter for dental examination Dental calculus Dental plaque Poor oral hygiene Halitosis Bleeding gums Gingival enlargement PERIODIC ORAL EVALUATION - ESTABLISHED PATIENT Routine 05/22/2025 8:00 AM EDT Periodontal disease Encounter for dental examination Dental calculus Dental plaque Poor oral hygiene Halitosis Bleeding gums Gingival enlargement INTRAORAL - COMPLETE SERIES OF RADIOGRAPHIC IMAGES Routine 11/16/2024 8:00 AM EDT LIPID PANEL, STANDARD Routine 12/14/2023 8:12 AM EDT Dyslipidemia HEPATITIS C AB W/REFL TO HCV RNA, QN, PCR Routine 11/25/2022 2:24 PM EDT Encounter for hepatitis C screening test for low risk patient HM COLONOSCOPY Routine 11/02/2022 HIV 1/2 ANTIGEN/ANTIBODY, FOURTH GENERATION W/RFL Routine 01/06/2021 1:07 PM EDT from Last 3 Months or Most Recently Relevant to Health Maintenance Results * (ABNORMAL) Lipid Panel, Standard (12/14/2023 8:12 AM EDT) Triglycerides 81 <150 mg/dL [facility] Comment:Desirable Triglyceri de: less than 150 mg/dLBorderline High Triglyceride 150-199 mg/dLHigh Triglyceride: 200-499 mg/dLVery High Triglyceride: greater than or equal to 5OO mg/dL Cholesterol 177 <200 mg/dL [facility] Comment:Desirable Cholestero l: less than 200 mg/dLBorderline High Cholesterol: 200-239 mg/dLHigh Cholesterol: greater than 239 mg/dL LDL Cholesterol Calculated 118(H) <100 mg/dL [facility] Comment:Desirable LDL: less than 100 mg/dLNear Optimal/Above Optimal LDL: 110- 129 mg/dLBorderline High LDL: 130-159 mg/dLHigh LDL: 160-189 mg/dLVery High LDL: greater than or equal to 190 mg/dL HDL Cholesterol 43 >40 mg/dL [facility] Comment:Desirable HDL: great er than 40 mg/dL Note: This HDL assay may give artificially low results in patients with liver disease. Blood Venous blood specimen / Unknown 12/14/2023 8:12 AM EDT 12/14/2023 11:26 AM EDT Tanisha Woodruff MD LAB BLOOD ORDERABLES Final Result [facility] [address] [place] [phone] * Hepatitis C Antibody with Reflex to HCV, RNA, Quantitative, Real-Time PCR (11/25/2022 2:24 PM EDT) Pathologist [facility] Hepatitis C Antibody NON-REACT ALLAN NON-REACT ALLAN [employer] [place] [employer] Index 0.08 <1.00 [facility] [place] [employer] Comment: HCV antibody was non-reactive. There is no laboratory evidence of HCV infection. In most cases, no further action is required. However, if recent HCV exposure is suspected, a test for HCV RNA (test code 62334) is suggested. For additional information please refer to http://education.[employer]/faq/GML08k6 (This link is being provided for informational/ educational purposes only.) Blood Venous blood specimen / Unknown 11/25/2022 2:24 PM EDT 11/25/2022 2:24 PM EDT Narrative [facility] - 11/26/2022 5:20 AM EDT FASTING:UNKNOWN FASTING: UNKNOWN Tanisha Woodruff MD LAB BLOOD ORDERABLES Final Result Performing Organization Address City/[facility]/ZIP Co de Phone Number [facility] [address], [place] [address] [facility] [address] [place] [address] * (ABNORMAL) Hm Colonoscopy (11/02/2022) Pathologist [facility] Colonoscopy Abnormal(A ) Normal Cy Laguna MD HEALTH MAINTENANCE Final Result * HIV 1/2 ANTIGEN/ANTIBODY,FOURTH GENERATION W/RFL (01/06/2021 1:07 PM EDT) Pathologist [facility] HIV-1/2 ANTIGEN AND ANTIBODIES, 4TH GENERATION W/ REFLEX NON-REACT ALLAN NON-REACT ALLAN [facility] Comment: HIV-1 antigen and HIV-1/HIV-2 antibodies were not detected. There is no laboratory evidence of HIV infection. PLEASE NOTE: This information has been disclosed to you from records whose confidentiality may be protected by state law. If your state requires such protection, then the state law prohibits you from making any further disclosure of the information without the specific written consent of the person to whom it pertains, or as otherwise permitted by law. A general authorization for the release of medical or other information is NOT sufficient for this purpose. For additional information please refer to http://education.[employer]/faq/DSG246 (This link is being provided for informational/ educational purposes only.) The performance of this assay has not been clinically validated in patients less than 2 years old. 01/06/2021 1:07 PM EDT us Tra Butler MD LAB BLOOD ORDERABLES Final Result Performing Organization Address City/State/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
--- OUTSIDE RECORDS SUMMARY | 2025-06-22 08:25 | XMS_ITS | Encounter Summary ---
Author Organization [employer] Address [address] [facility] [address]t [place] [address] Care Team Providers Care Film Spooler Name Role Phone Tanisha Woodruff MD Primary Care Provider [phone] David Asif MD Unavailable [phone] Manolo Franco MD Unavailable Encounter Details Date Type Department Care Team (Late st Contact Info) Description 11/02/2022 Abstract [facility] [address] [place] [address] Tanisha Woodruff MD [address] [place] [address] Social History Tobacco Use Types Packs/Day Years Used Date Smoking Tobacco: Never Smokeless Tobacco: Never Tobacco Cessation:Counseling Given: Not Answered Sex and Gender Information Value Date Recorded [...] Description 07/02/2025 3:00 PM EST Office Visit [facility] [address] [place], [place] [phone] Ayesha Holcomb 08/01/2025 2:30 PM EST Office Visit [facility] [address] [place], [place] [phone] Kevin Katz DDS [address] [place] [address] documented as of this encounter Procedures Procedure Name Priority Date/Time Associated Diagnosis Comments COLONOSCOPY Routine 11/02/2022 documented in this encounter Results * (ABNORMAL) Colonoscopy (11/02/2022) Colonoscopy Abnormal(A ) Normal us Historical Provider HEALTH MAINTENANCE Final Result documented in this encounter Visit Diagnoses Not on filedocumented in this encounter Care Teams Film Spooler Relationship Specialty Start Date End Date Tanisha Woodruff MD [address] [place] [address] PCP - General Family Medicine 08/15/18 David Asif MD [address] [place] [address] [address] [place] [address] Ophthalmology 09/06/24 Manolo Franco MD [address] [place] [address] [facility] [address] Neurology 09/06/24 [facility] Extraction Supervisor 06/21/25 documented as of this encounter
[2025-06-22 08:54] LABS: MANUAL DIFF FLAG NO
[2025-06-22 10:40] LABS: Hematocrit 44.2 % (42.0-52.0); Hemoglobin 13.5 g/dl (14.0-18.0); Imm Gran Abs Auto 0.00 X10*3/uL (0.00-0.03); Imm Gran Pct Auto 0.0 % (0.0-0.4); Lymphocytes Absolute Auto 1.7 X10*3/uL (1.2-4.9); Mean Corpuscular HGB Conc 30.5 g/dl (31.0-36.0); Mean Corpuscular Hemoglobin 27.2 pg (27.0-33.0); Mean Corpuscular Volume 88.9 fL (80.0-98.0); NRBC Abs Auto 0.000 X10*3/uL (0.0-0.012); NRBC Pct Auto 0.0 /100WBC (0.0-0.2); Platelet Count 324 X10*3/uL (160-400); Red Blood Count 4.97 X10*6/uL (4.60-5.80); White Blood Count 4.8 X10*3/uL (4.8-10.8)
[2025-06-22 11:40] LABS: Alanine Aminotransferase 17 U/L (0-40); Albumin Level 4.6 g/dL (3.5-5.0); Alkaline Phosphatase 105 U/L (39-117); Anion Gap 12 (12-20); Aspartate Amino Transferase 46 U/L (5-37); Blood Urea Nitrogen 19 mg/dL (9-16); Calcium 9.4 mg/dL (8.4-10.2); Carbon Dioxide 24 mmol/L (22-29); Chloride 112 mmol/L (96-108); Cholesterol 198 mg/dL (<200); Estimated Glomerular Filt Rate > 60; HDL Cholesterol 52 mg/dL (>40); Iron 57 mcg/dL (45-160); Percent Iron Saturation 20 % (15-50); Potassium 4.2 mmol/L (3.3-5.1); Sodium 144 mmol/L (135-145); Total Iron Binding Capacity 287 mcg/dL (228-428); Total Protein 7.8 g/dL (6.5-8.0); Triglycerides 77 mg/dL (<150); Unsaturated Iron Binding 230 ug/dL
[2025-06-22 12:00] LABS: Ferritin 14 ng/mL (20-250)
[2025-06-22 12:08] LABS: Folate 10.1 ng/mL (> or = 4.0); Prostate Specific Antigen 0.54 ng/mL (<0.05-4.0); Vitamin B12 855 pg/mL (200-900)
== END 2025-06-22 08:23 | disposition home or self-care (01) ==
LOC: HO.LAB 08:22
PROVIDERS: PCP Family Medicine; Visit Provider Family Medicine
DX: Z13.1 Encounter for screening for diabetes mellitus (principal); D64.9 Anemia, unspecified; E66.3 Overweight; E78.5 Hyperlipidemia, unspecified; Z12.5 Encounter for screening for malignant neoplasm of prostate; Z80.42 Family history of malignant neoplasm of prostate
CPT/HCPCS: 36415; 80048; 80061; 80076; 82607; 82728; 82746; 83036; 83540; 84153; 84443; 85025